=== PATIENT | male | born 1995 | race African-American/Black ===

== ENCOUNTER 2024-05-02 09:58 | Emergency (ER) | payer SELFPAY ==
[2024-05-02] MEDS ORDERED: Ondansetron ODT 4 MG TAB ONE (10:26)
[2024-05-02] MEDS ORDERED: Ketorolac Tromethamine 30 MG (1 mL) VIAL ONE (10:26)
== END 2024-05-02 11:40 | disposition home or self-care (01) ==
LOC: CSHERS 09:58
DX: J10.1 Influenza due to other identified influenza virus with other respiratory manifestations (principal); F17.210 Nicotine dependence, cigarettes, uncomplicated
CPT/HCPCS: 87428; 96372; 99283; J1885; Q0162